=== PATIENT | male | born 1995 | race American Indian/Alaskan Native ===

== ENCOUNTER 2018-05-03 04:10 | Emergency (ER) | payer SELFPAY ==
[2018-05-03 04:14] VITALS: BP 134/84
--- NOTE | 2018-05-03 05:10 | XRay Report ---
FINAL REPORT EXAM: XR HAND 3+V RT HISTORY: Right hand swelling and pain COMPARISONS: None. FINDINGS: Three views right hand There is a posterior fracture dislocation of the 4th and possibly 5th carpometacarpal joint. The hamate bone may be fractured. Remaining carpal bones appear intact. Distal radius and ulna appear intact. IMPRESSION: Posterior fracture dislocation of the 4th carpometacarpal and possibly the 5th carpometacarpal joint.
[2018-05-03] MEDS ORDERED: PERCOCET 5/325 PO ONE (05:54)
[2018-05-03] MEDS ORDERED: PERCOCET 5/325 ONE (05:56)
--- NOTE | 2018-05-03 06:04 | Emergency Department Report ---
Upper Extremity - HPI Chief Complaint: Extremity Injury, Upper Stated Complaint: RIGHT HAND PAIN Time Seen by Provider: 05/03/18 04:40 Upper Extremity: Right Hand (deformity pain swelling) Occurred When: Today Mechanism: Fall Severity: moderate Symptoms: Yes Pain with Movement, Yes Deformity, Yes Limited Range of Movement, Yes Swelling, Yes Bruising/Ecchymosis, No Numbness, No Weakness, No Laceration or Abrasion Other History: Closed right hand deformity status post fall pain 7/10 aching throbbing exacerbated by movement and palpation ED Review of Systems ROS: Stated complaint: RIGHT HAND PAIN Other details as noted in HPI Constitutional: denies: chills, fever Eyes: denies: eye pain, eye discharge, vision change ENT: denies: ear pain, throat pain Respiratory: denies: cough, shortness of breath, wheezing Cardiovascular: denies: chest pain, palpitations Endocrine: no symptoms reported Gastrointestinal: denies: abdominal pain, nausea, diarrhea Genitourinary: denies: urgency, dysuria Musculoskeletal: myalgia Skin: denies: rash, lesions Neurological: denies: headache, weakness, paresthesias Psychiatric: denies: anxiety, depression Hematological/Lymphatic: denies: easy bleeding, easy bruising ED Past Medical Hx - Past Medical History Previous Medical History?: No - Surgical History Past Surgical History?: No - Social History Smoking Status: Current Every Day Smoker Substance Use Type: Marijuana - Medications Home Medications: Home Medications Medication Instructions Recorded Confirmed Last Taken Type HYDROcodone/ACETAMINOPHEN 1 each PO Q6H PRN #12 tablet 05/03/18 Unknown Rx [Hydrocodone-Acetamin 5-325 mg] Upper Extremity Exam - Exam General: Vital signs noted. No distress. Alert and acting appropriately. Shoulder Exam: Yes Normal Range of Motion in Shoulder, No Shoulder Tenderness, No Clavicle Tenderness, No Shoulder Deformity, No AC Joint Tenderness Arm Exam: No Arm/Humerus Tenderness, No Arm Deformity Elbow: No Elbow Tenderness, No Normal Range of Motion in Elbow, No Elbow Deformity Forearm: No Forearm Tenderness, No Forearm Deformity, No Pain with Pronation, No Pain with Supination Wrist: Yes Normal ROM in Wrist, No Wrist Tenderness, No Wrist Deformity, No Snuffbox Tenderness, No Pain with Axial Thumb Compression Hand: Yes Hand Tenderness, Yes Hand Deformity, Yes Digit Tenderness, No Normal ROM in Digit(s), No Digit(s) Deformity, No Tendon Dysfunction CMS Exam: Yes Normal Distal Pulses, Yes Normal Capillary Refill, Yes Normal Distal Sensation, No Broken Skin Hand L/R Back: 1 - right 4&5 metcarpal base deformity swelling no xifoid tenderness no pain is axial thumb loading distal pulse intact safety companion <3 sec ED Course Vital Signs 05/03/18 05/03/18 04:13 05:57 Temperature 98.6 F Pulse Rate 84 Respiratory 18 18 Rate Blood Pressure 134/84 O2 Sat by Pulse 94 Oximetry - Reevaluation(s) Reevaluation #1: Orthopedic consult Dr. Lorenz, will see pt at bedside, discussed same with patient , verbalized agreement and understanding with tx plan: pain is now 3/10 after percocet po 05/03/18 06:04 05/03/18 06:04 Reevaluation #2: Ortho Consult DR. Rausch to bedside at this time, plan: manual reduction 4&5th metacarpal , splint follow up with ortho Outpatient. discussed same with patient , patient verbalized agreement and understanding of tx plan. 05/03/18 06:56 ED Medical Decision Making - Radiology Data Radiology results: report reviewed, image reviewed Closed displaced metacarpal fracture fourth and fifth - Medical Decision Making Patient has fourth and fifth metacarpal fractures posteriorly displaced orbital consulted for reduction Dr. Rausch , Plan: Splint, via Ortho Consult, dc to home with rx for hydrocodone po prn pain, pt given splint care instructions, follow up instructions, and medication education. Critical care attestation.: If time is entered above; I have spent that time in minutes in the direct care of this critically ill patient, excluding procedure time. ED Disposition Clinical Impression: Closed displaced fracture of metacarpal bone of right hand Disposition: DC-01 TO HOME OR SELFCARE Is pt being admited?: No Does the pt Need Aspirin: No Condition: Stable Instructions: Hand Fracture (ED), Splint Care (ED) Prescriptions: HYDROcodone/ACETAMINOPHEN [Hydrocodone-Acetamin 5-325 mg] 1 each PO Q6H PRN #12 tablet PRN Reason: pain Referrals: PRIMARY CARE, [Primary Care Provider] - 3-5 Days Forms: Work/School Release Form(ED)
[2018-05-03] MEDS ORDERED: XYLOCAINE 1% 20 mL ONE (06:53)
[2018-05-03] MEDS ORDERED: XYLOCAINE 1% 20 mL INFILTRATI ONE (06:55)
--- NOTE | 2018-05-03 07:48 | XRay Report ---
FINAL REPORT EXAM: XR HAND 3+V RT HISTORY: post reduction COMPARISONS: Earlier examination of the same date FINDINGS: Three views right hand Overlying support material obscures fine osseous and soft tissue detail. There has been interval reduction of the patient's 4th carpometacarpal joint dislocation. Alignment appears anatomic. No definite fracture identified. IMPRESSION: Significantly improved and now anatomic alignment status post reduction of patient's posterior 4th carpometacarpal dislocation. No definite fracture identified on this exam.
--- NOTE | 2018-05-03 09:38 | Consultation ---
History of Present Illness - [facility] Consult date: 05/03/18 History of present illness: 22-year-old right-hand dominant male who reports that he fell down some stairs at about 4 AM this morning. He struck his right hand sustained gross deformity and pain to the right wrist. He subsequently presented to the emergency department for evaluation. He was in 7 out of 10 pain. Past History Past Surgical History: No surgical history Social history: single, smoking (works for a moving company. Right-hand dominant.) Family history: no significant family history Medications and Allergies Allergies Allergy/AdvReac Type Severity Reaction Status Date / Time No Known Allergies Allergy Verified 05/03/18 05:54 Home Medications Medication Instructions Recorded Confirmed Last Taken Type HYDROcodone/ACETAMINOPHEN 1 each PO Q6H PRN #12 tablet 05/03/18 Unknown Rx [Hydrocodone-Acetamin 5-325 mg] Review of Systems Constitutional: no fever, no chills, no sweats, no night sweats Ears, nose, mouth and throat: no nose pain, no sinus pressure, no sinus pain Cardiovascular: no rapid/irregular heart beat, no lightheadedness, no shortness of breath Respiratory: no cough, no wheezing, no pain Gastrointestinal: no abdominal pain Physical Examination - Physical exam Narrative exam: Exam of the right hand reveals gross deformity about the base of the fourth and fifth metacarpals just distal to the wrist. He is grossly tender to the area. There are no open wounds. There is some swelling around the area. There is no rotational deformity involving the ring and small fingers. He is able to flex and extend at the interphalangeal and metacarpophalangeal joints. He is intact to light touch in all distributions including over. His fingertips are well perfused. Assessment and Plan Radiographs of the right hand reveal a dorsal dislocation about the base of the fourth and fifth carpometacarpal joints. No obvious fracture. Assessment and plan: 22-year-old male with a closed right base of fourth and fifth CMC joint dislocation. Under local block closed reduction was performed. The fourth and fifth CMC joints were reduced and were stable in wrist flexion and extension. The patient was then placed into an ulnar gutter splint in the intrinsic plus position. Post reduction films reveal an concentric reduction without an obvious fracture. The patient will be discharged home with pain medications. He will follow up in the orthopedic clinic in 1 week for overwrap the cast. We'll plan for 3-4 weeks immobilization followed by conversion to removable splint.
== END 2018-05-03 08:02 | disposition home or self-care (01) ==
LOC: ED 04:10
DX: S62.314A Displaced fracture of base of fourth metacarpal bone, right hand, initial encounter for closed fracture (principal); S62.316A Displaced fracture of base of fifth metacarpal bone, right hand, initial encounter for closed fracture; F17.200 Nicotine dependence, unspecified, uncomplicated; W19.XXXA Unspecified fall, initial encounter; Y93.89 Activity, other specified; Y92.89 Other specified places as the place of occurrence of the external cause; Y99.8 Other external cause status
CPT/HCPCS: 99283

== ENCOUNTER 2019-08-02 09:47 | Emergency (ER) | payer SELFPAY ==
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
[2019-08-02 13:13] VITALS: BP 130/90
== END 2019-08-02 11:46 | disposition home or self-care (01) ==
LOC: ED 09:47
DX: S31.000A Unspecified open wound of lower back and pelvis without penetration into retroperitoneum, initial encounter (principal); F17.200 Nicotine dependence, unspecified, uncomplicated; F12.10 Cannabis abuse, uncomplicated; Z79.899 Other long term (current) drug therapy; X58.XXXA Exposure to other specified factors, initial encounter; Y93.89 Activity, other specified; Y92.89 Other specified places as the place of occurrence of the external cause; Y99.8 Other external cause status

== ENCOUNTER 2020-09-29 07:33 | Emergency (ER) | payer SELFPAY ==
[2020-09-29 07:39] VITALS: BP 133/91
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
[2020-09-29] MEDS: LIDOCAINE (1%) 10 MG/1 ML VIAL 20 ML MDV INFILTRATI ONE ×2 (09:52→09:53)
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
== END 2020-09-29 10:22 | disposition home or self-care (01) ==
LOC: ED 07:33
DX: S30.850A Superficial foreign body of lower back and pelvis, initial encounter (principal); F17.200 Nicotine dependence, unspecified, uncomplicated; F12.10 Cannabis abuse, uncomplicated; Z79.899 Other long term (current) drug therapy; W34.09XA Accidental discharge from other specified firearms, initial encounter; Y93.89 Activity, other specified; Y92.89 Other specified places as the place of occurrence of the external cause; Y99.8 Other external cause status
CPT/HCPCS: 72100; 87116; 99283

== ENCOUNTER 2020-12-03 13:29 | Emergency (ER) | payer SELFPAY ==
[2020-12-03 13:42] VITALS: BP 135/86
[2020-12-03] MEDS ORDERED: NEOMY 3.5 MG/BACIT 400 UNITS/POLY B 5000 UNITS/GM OINT PACKET TP ONE (14:00)
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
== END 2020-12-03 14:28 | disposition home or self-care (01) ==
LOC: ED 13:29
DX: M25.531 Pain in right wrist (principal); Z53.21 Procedure and treatment not carried out due to patient leaving prior to being seen by health care provider
CPT/HCPCS: A6250